=== PATIENT | female | born 1960 | race Caucasian/White ===

== ENCOUNTER → 2016-07-11 | Outpatient (CLI) | payer BC, SELFPAY ==
--- NOTE | 2016-07-11 12:24 | MRI ---
EXAM DESCRIPTION: Lumbar Spine w/o Contrast CLINICAL HISTORY: BACK PAIN COMPARISON: None Available. TECHNIQUE: MRI of the lumbar spine is performed according to our usual protocol with axial and sagittal multi sequence imaging. Marrow signal is normal. There is endplate edema noted at L1-2 and L2-3. Retrolisthesis of L2 on L3. The conus terminates at L1-L2 and is unremarkable disc desiccation noted from L1-2 through L4-5 L1-2: Circumferential disc osteophyte complex with a more pronounced left paracentral component. Facet degeneration and ligamentum flavum thickening noted. The midline diameter of the spinal canal is unremarkable measuring 12 mm. Bilateral neuroforamen are unremarkable. L2-3: Circumferential asymmetric right disc osteophyte complex. Bilateral facet effusions noted secondary to subtle retrolisthesis. The midline diameter of the spinal canal is adequate at 1.2 cm. Bilateral neuroforamen are mildly narrowed. L3-4: Posterior central annular tear. Mild 2 mm circumferential disc bulge. Mild facet degeneration. The midline diameter of the spinal canal is widely patent measuring 12 mm. Bilateral neuroforamen are unremarkable. L4-5: Bilateral facet effusions. Degenerative change noted. 2 mm circumferential disc bulge. Bilateral neuroforamen are unremarkable. The AP diameter spinal canal is unremarkable. L5-S1: Moderate facet degeneration. 2 mm circumferential disc bulge. The midline diameter spinal canal is widely patent measuring 1.4 cm. There is moderate bilateral neural foraminal narrowing with contact of the exiting right L5 nerve root. IMPRESSION: 1. Today's exam demonstrates multilevel facet and degenerative disc disease, but no spinal canal narrowing. 2. There is retrolisthesis of L2 on L3 with subtle distraction of the facets. This results in effusions of bilateral facet joints. 3. Neuroforaminal narrowing noted at L2-3 and L5-S1. There is contact only of the exiting right L5 nerve root. This could result in a right L5 radiculopathy if the patient is symptomatic. Electronically signed by: Ladarius Mayo MD 07/11/2016 12:24 PM CDT
== END ==
LOC: MRI 10:02
PROVIDERS: ATTEND Family Medicine
DX: M54.30 Sciatica, unspecified side (principal); M51.36 Other intervertebral disc degeneration, lumbar region

== ENCOUNTER → 2017-05-20 | Outpatient (CLI) | payer BC, OTHER ==
--- NOTE | 2017-05-20 21:44 | MRI ---
EXAM DESCRIPTION: Cervical Spine: MRI. CLINICAL HISTORY: CERVICAL REGION; RADICULOPATHY COMPARISON: Noncontrast MRI scan of the right shoulder on the same visit. TECHNIQUE: Multiplanar MRI, multiple sequences, non-contrast High-field. Technically difficult study due to patient motion resulting in artifact. FINDINGS: C2-3: Disc desiccation. 2 mm right posterior bulge. Right uncinate spur. Mild canal narrowing. Mild to moderate foraminal narrowing. Facets negative. C3-4: Disc desiccation and disc space loss. Anterior bulging. No posterior bulging in the canal. Large left uncinate spur and mild left facet arthrosis resulting in mild neural foraminal stenosis. Mild to moderate right neural foraminal narrowing. Mild canal narrowing. C4-5: Disc space narrowing and disc desiccation. Posterior disc osteophyte complex bulging 3 mm and abutting the cord. Right uncinate spur and facet arthrosis with moderate neural foraminal narrowing. Left uncinate spur and facet arthrosis with left neural foraminal stenosis. C5-6: Posterior midline disc bulge 3 mm abutting the cord. Also right side disc spur complex abutting the cord along with disc osteophyte complex and facet arthrosis causing severe right neural foraminal stenosis. Similar process on the left with moderate left neural foraminal stenosis. C6-7: Disc desiccation and disc space loss. Anterior bulging and endplate ridging. Posterior disc osteophyte complex 3 mm abutting the cord with moderate canal narrowing. Bilateral uncinate spurs with moderate neural foraminal narrowing more right than left. Mild bilateral facet arthrosis C7-T1: Disc desiccation and disc space loss. Anterior bulging and endplate ridging. Large posterior midline 4 mm disc extrusion extending above the disc space and impressing on the cord with borderline canal stenosis. Normal signal in the T1-T2 disc with no bulging. Disc space preserved. Canal and neural foramina are patent. Facets are unremarkable. No cord compression or cord edema. Spine is minimally lordotic. Atlantoaxial joint is negative. Base of the cerebellar tonsils is above the foramen magnum. Paravertebral soft tissues are unremarkable. Vertebral bodies are not compressed at any level. Normal marrow signal in the remaining vertebral bodies and the posterior elements. IMPRESSION: 1. Multiple levels of disc desiccation and disc space loss. Unilateral or bilateral uncinate spurs. Unilateral or bilateral facet arthrosis. Disc osteophyte complex involving the neuroforamina and/or the canal. Minimally normal lordosis. No compression deformities. 2. Left neural foraminal stenosis at L3-4. Correlate for left L4 radiculopathy. 3. Left neural foraminal stenosis at C4-5. Posterior disc osteophyte complex abutting the cord. Correlate for left C5 radiculopathy. 4. Posterior C5-6 disc bulge. Right side disc osteophyte complex causing neural foraminal stenosis. Similar process involving the left neural foramen. Correlate for bilateral C6 radiculopathy. 5. Posterior disc osteophyte complex at C6-7 abutting the cord. Mild facet arthrosis bilaterally. #6 6. Large posterior midline 4 mm C6-7 disc extrusion above the disc space abutting the cord with borderline canal stenosis. Electronically signed by: Hudson Alcantar MD 05/20/2017 9:43 PM [facility]
--- NOTE | 2017-05-21 09:17 | MRI ---
EXAM DESCRIPTION: Shoulder,Right: MRI. CLINICAL HISTORY: PAIN IN RIGHT SHOULDER COMPARISON: Cervical spine MRI on the same visit. TECHNIQUE: Multiplanar, high-field MRI, multiple sequences, without contrast: Right shoulder. FINDINGS: Fluid signal involving most of the anterior supraspinatus tendon on the undersurface, but not definitely full thickness. Fluid signal extends longitudinally in the anterior tendon. Intermediate signal in the distal infraspinatus tendon; edema and swelling distally. Minimal fluid in the subacromial-subdeltoid bursa edema on the anterior marrow of the greater tuberosity abutting the supraspinatus tendon attachment. Subcortical cyst versus cortical erosion at the infraspinatus tendon insertion. No significant muscle atrophy. Subchondral cysts distal clavicle and edema subchondral. Minimal effusion in the AC joint. Inferior distal clavicle spur impressing on the proximal supraspinatus tendon superior surface. Minimal fluid in the musculotendinous junction. Type II curvature lateral acromion. Coracoid ligaments are intact with fluid posterior to the acromion. Minimal fluid in the subcoracoid bursa. Mid anterior location of the bicipital labral anchor. Minimal effusion in the glenohumeral joint capsule. Intermediate signal in the posterior aspect of the superior glenoid labrum. No definite labral injury. No significant chondromalacia in the glenohumeral joint. Glenohumeral ligaments are grossly normal. Normal signal in the long head biceps tendon which is located in the bicipital groove. IMPRESSION: 1. Partial-thickness tear of the insertion of the anterior fibers of the supraspinatus tendon in the critical zone, almost full-thickness tear. Proximal tendon strain. Also edema in the musculotendinous junction where distal clavicle spur impressing on it. Degenerative signal and edema from strain in the infraspinatus tendon. Minimal fluid in the subacromion-subdeltoid bursa. 2. Edema in the anterior and posterior greater tuberosity. 3. Subcoracoid bursitis. Moderate arthrosis of the AC joint and flattening of the coracoacromial arch. 4. Degeneration of the posterior aspect of the superior glenoid labrum. Glenohumeral joint effusion. Electronically signed by: Hudson Alcantar MD 05/21/2017 9:15 AM [employer]
== END | disposition home or self-care (01) ==
LOC: MRI 13:09
PROVIDERS: ATTEND Family Medicine
DX: M54.12 Radiculopathy, cervical region (principal); M75.51 Bursitis of right shoulder; M25.411 Effusion, right shoulder

== ENCOUNTER → 2018-08-26 | Outpatient (CLI) | payer BC | LOC: GMAE 12:28 | PROVIDERS: ATTEND Family Medicine | DX: E03.9 Hypothyroidism, unspecified (principal) ==

== ENCOUNTER → 2018-12-23 | Outpatient (CLI) | payer BC | LOC: GMAE 11:45 | PROVIDERS: ATTEND Family Medicine | DX: E03.9 Hypothyroidism, unspecified (principal); E78.2 Mixed hyperlipidemia ==

== ENCOUNTER → 2019-07-20 | Outpatient (CLI) | payer BC | LOC: GMAE 10:38 | PROVIDERS: ATTEND Family Medicine | DX: E03.9 Hypothyroidism, unspecified (principal); I10 Essential (primary) hypertension; E78.2 Mixed hyperlipidemia; Z79.899 Other long term (current) drug therapy ==

== ENCOUNTER → 2020-03-03 | Outpatient (CLI) | payer BC | LOC: GMAE 14:24 | PROVIDERS: ATTEND Family Medicine | DX: E03.9 Hypothyroidism, unspecified (principal); I10 Essential (primary) hypertension; E78.2 Mixed hyperlipidemia ==